=== PATIENT | female | born 1955 | race Caucasian/White ===

== ENCOUNTER → 2019-03-27 | Outpatient (CLI) | payer BC | END | disposition home or self-care (01) | LOC: LAB EV 15:52 → LAB SHORT 15:52 | DX: N39.0 Urinary tract infection, site not specified (principal) | CPT/HCPCS: 87077; 87086; 87186 ==

== ENCOUNTER → 2019-10-29 | Outpatient (CLI) | payer MEDICARE | END | disposition home or self-care (01) | LOC: LAB 13:02 → LAB SHORT 13:02 | DX: N39.0 Urinary tract infection, site not specified (principal) | CPT/HCPCS: 87077; 87086; 87186 ==

== ENCOUNTER → 2020-01-07 | Outpatient (CLI) | payer MEDICARE ==
[2020-01-07 19:00] LABS: BASOPHILS ABSOLUTE AUTO 0.05 K/mm3 (0.00-0.23); BASOPHILS PERCENT AUTO 1 % (0-2); EOSINOPHILS ABSOLUTE AUTO 0.22 K/mm3 (0.00-0.68); EOSINOPHILS PERCENT AUTO 2 % (0-6); Hematocrit 36.2 % (33.0-51.0); Hemoglobin 11.5 g/dL (11.5-16.0); IMMATURE GRAN ABSOLUTE AUTO 0.02 K/mm3 (0.00-0.10); IMMATURE GRAN PERCENT AUTO 0 % (0-1); LYMPHOCYTES ABSOLUTE AUTO 1.79 K/mm3 (0.84-5.20); LYMPHOCYTES PERCENT AUTO 20 % (21-46); MONOCYTES ABSOLUTE AUTO 0.53 K/mm3 (0.16-1.47); MONOCYTES PERCENT AUTO 6 % (4-13); Mean Corpuscular HGB 30.5 pg (26.0-34.0); Mean Corpuscular HGB Conc 31.8 g/dL (31.5-36.5); Mean Corpuscular Volume 96 fL (80-100); NEUTROPHILS ABSOLUTE AUTO 6.58 K/mm3 (1.96-9.15); NEUTROPHILS PERCENT AUTO 72 % (41-73); Platelet Count 275 K/mm3 (150-400); RDW Coefficient Variation 12.3 % (11.7-14.2); RDW Standard Deviation 42.3 fL (35.1-46.3); Red Blood Cell Count 3.77 M/mm3 (3.80-5.20); White Blood Cell Count 9.19 K/mm3 (4.00-11.30)
[2020-01-07 19:23] LABS: Albumin, Blood 3.3 g/dL (3.4-5.0); Albumin/Globulin Ratio 0.8 (0.8-1.8); Bilirubin, Total 0.4 mg/dL (0.1-1.0); Bun/Creatinine Ratio 24.9 (12.0-20.0); Calcium, Blood 9.4 mg/dL (8.5-10.1); Creatinine, Blood 2.45 mg/dL (0.40-1.00); Globulin, Blood 4.2 g/dL (2.2-4.0); Total Protein, Blood 7.5 g/dL (6.4-8.2); Uric Acid, Blood 12.1 mg/dL (2.6-6.0)
== END | disposition home or self-care (01) ==
LOC: LAB 15:06 → LAB SHORT 15:06
PROVIDERS: Family Medicine
DX: M79.672 Pain in left foot (principal); E11.9 Type 2 diabetes mellitus without complications
CPT/HCPCS: 36415; 80053; 83036; 84550; 85025; 85651

== ENCOUNTER → 2020-08-05 | Outpatient (CLI) | payer MEDICARE ==
[2020-08-05 12:36] LABS: Protein, Urine Quantitative 10.1 mg/dL (0.0-11.9)
[2020-08-11 13:08] LABS: M-SPIKE, % Not Observed % (Not Observed); PROTEIN,TOTAL,URINE 5.1 mg/dL (Not Estab.)
== END | disposition home or self-care (01) ==
LOC: LAB 10:47 → LAB SHORT 10:47
PROVIDERS: Internal Medicine
DX: N18.32 Chronic kidney disease, stage 3b (principal)
CPT/HCPCS: 81050; 84156; 84166

== ENCOUNTER → 2020-10-18 | Outpatient (CLI) | payer MEDICARE | END | disposition home or self-care (01) | LOC: LAB SHORT 10:44 → LAB EV 10:44 | DX: R30.9 Painful micturition, unspecified (principal) | CPT/HCPCS: 87077; 87086; 87186 ==

== ENCOUNTER → 2022-05-08 | Outpatient (CLI) | payer MEDICARE | END | disposition home or self-care (01) | LOC: LAB SHORT 11:34 → LAB 11:34 | DX: N39.0 Urinary tract infection, site not specified (principal) | CPT/HCPCS: 87077; 87086; 87186 ==

== ENCOUNTER → 2022-05-20 | Outpatient (CLI) | payer MEDICARE | END | disposition home or self-care (01) | LOC: LAB SHORT 12:50 → LAB 12:50 | DX: N39.0 Urinary tract infection, site not specified (principal) | CPT/HCPCS: 87077; 87086; 87186 ==

== ENCOUNTER → 2022-10-06 | Outpatient (CLI) | payer MEDICARE ==
[~2022-10-06] MED LIST: ACET500 PO; ALLO100 PO; ATEN50 PO; CALC.25 PO; FERSU300 PO; FURO40 PO; GLIM4 PO; LOSA50 PO; PIOG30 PO; Vitamin D1000 UNI1 PO; ZOCOR20 MG PO
[2022-10-06 19:35] LABS: BASOPHILS ABSOLUTE AUTO 0.05 K/mm3 (0.00-0.23); BASOPHILS PERCENT AUTO 1 % (0-2); EOSINOPHILS ABSOLUTE AUTO 0.15 K/mm3 (0.00-0.68); EOSINOPHILS PERCENT AUTO 2 % (0-6); Hematocrit 34.9 % (33.0-51.0); Hemoglobin 10.8 g/dL (11.5-16.0); IMMATURE GRAN ABSOLUTE AUTO 0.08 K/mm3 (0.00-0.10); IMMATURE GRAN PERCENT AUTO 1 % (0-1); LYMPHOCYTES ABSOLUTE AUTO 1.45 K/mm3 (0.84-5.20); LYMPHOCYTES PERCENT AUTO 22 % (21-46); MONOCYTES ABSOLUTE AUTO 0.41 K/mm3 (0.16-1.47); MONOCYTES PERCENT AUTO 6 % (4-13); Mean Corpuscular HGB 32.3 pg (26.0-34.0); Mean Corpuscular HGB Conc 30.9 g/dL (31.5-36.5); Mean Corpuscular Volume 105 fL (80-100); Mean Platelet Volume 10.3 fL (9.1-12.4); NEUTROPHILS ABSOLUTE AUTO 4.57 K/mm3 (1.96-9.15); NEUTROPHILS PERCENT AUTO 68 % (41-73); Platelet Count 408 K/mm3 (150-400); RDW Coefficient Variation 13.2 % (11.7-14.2); RDW Standard Deviation 49.1 fL (35.1-46.3); Red Blood Cell Count 3.34 M/mm3 (3.80-5.20); White Blood Cell Count 6.71 K/mm3 (4.00-11.30)
[2022-10-06 21:09] LABS: Alanine Aminotransfer (ALT/SGP 22 U/L (12-78); Albumin, Blood 3.2 g/dL (3.4-5.0); Albumin/Globulin Ratio 0.8 (0.8-1.8); Alk Phos 75 U/L (50-136); Anion Gap 8 mmol/L (6-16); Aspartate Aminotrans (AST/SGOT 32 U/L (12-37); Bilirubin, Total 0.6 mg/dL (0.1-1.0); Blood Urea Nitrogen 46 mg/dL (8-24); Bun/Creatinine Ratio 23.7 (12.0-20.0); CHOL/HDL RATIO 3.7; CO2, Blood 18 mmol/L (21-32); Calcium, Blood 9.4 mg/dL (8.5-10.1); Chloride, Blood 114 mmol/L (98-108); Cholesterol 173 mg/dL (50-200); Creatinine, Blood 1.94 mg/dL (0.40-1.00); Globulin, Blood 4.1 g/dL (2.2-4.0); Glomerular Filtration Rate 28 (60-); Glucose, Blood 189 mg/dL (70-99); HDL Cholesterol 47 mg/dL (>39); LDL/HDL RATIO 1.8; Low Density Lipoprotein Chol 85 mg/dL (0-110); Potassium, Blood 4.8 mmol/L (3.5-5.5); Sodium, Blood 140 mmol/L (136-145); Thyroxine (T4) 12.6 ug/dL (4.8-13.9); Total Protein, Blood 7.3 g/dL (6.4-8.2); Triglycerides 204 mg/dL (30-160); Very Low Density Lipoprot Chol 40 mg/dL (6-32)
== END | disposition home or self-care (01) ==
LOC: LAB 12:10 → LAB SHORT 12:10
PROVIDERS: Family Medicine
DX: I10 Essential (primary) hypertension (principal); E11.9 Type 2 diabetes mellitus without complications; E03.9 Hypothyroidism, unspecified; E78.2 Mixed hyperlipidemia
CPT/HCPCS: 80053; 80061; 83036; 84436; 84443; 85025

== ENCOUNTER → 2023-02-01 | Outpatient (CLI) | payer MEDICARE ==
[~2023-02-01] MED LIST changes: +CLOP75 PO; +PANT40 PO
== END | disposition home or self-care (01) ==
LOC: LAB SHORT 09:25 → LAB 09:25
DX: N39.0 Urinary tract infection, site not specified (principal)
CPT/HCPCS: 87077; 87086; 87186

== ENCOUNTER 2023-03-03 20:05 | Inpatient (IN) | payer MEDICARE ==
[~2023-03-03] VITALS: Ht 152.4 cm; Wt 157.8 kg
[2023-03-03 20:42] LABS: BASOPHILS ABSOLUTE AUTO 0.03 K/mm3 (0.00-0.23); BASOPHILS PERCENT AUTO 0 % (0-2); EOSINOPHILS PERCENT AUTO 1 % (0-6); Hematocrit 28.7 % (33.0-51.0); Hemoglobin 8.8 g/dL (11.5-16.0); IMMATURE GRAN ABSOLUTE AUTO 0.06 K/mm3 (0.00-0.10); IMMATURE GRAN PERCENT AUTO 1 % (0-1); LYMPHOCYTES PERCENT AUTO 12 % (21-46); MONOCYTES ABSOLUTE AUTO 0.47 K/mm3 (0.16-1.47); MONOCYTES PERCENT AUTO 6 % (4-13); Mean Corpuscular HGB 31.8 pg (26.0-34.0); Mean Corpuscular HGB Conc 30.7 g/dL (31.5-36.5); Mean Corpuscular Volume 104 fL (80-100); Mean Platelet Volume 10.9 fL (9.1-12.4); NEUTROPHILS ABSOLUTE AUTO 6.06 K/mm3 (1.96-9.15); NEUTROPHILS PERCENT AUTO 80 % (41-73); Platelet Count 173 K/mm3 (150-400); RDW Coefficient Variation 14.6 % (11.7-14.2); RDW Standard Deviation 55.2 fL (35.1-46.3); Red Blood Cell Count 2.77 M/mm3 (3.80-5.20); White Blood Cell Count 7.62 K/mm3 (4.00-11.30)
[2023-03-03 21:04] LABS: Albumin, Blood 3.6 g/dL (3.4-5.0); Bilirubin, Total 0.4 mg/dL (0.1-1.0); Bun/Creatinine Ratio 20.7 (12.0-20.0); Calcium, Blood 10.3 mg/dL (8.5-10.1); Creatinine, Blood 3.63 mg/dL (0.40-1.00); Globulin, Blood 3.5 g/dL (2.2-4.0); Potassium, Blood 3.6 mmol/L (3.5-5.5); Total Protein, Blood 7.1 g/dL (6.4-8.2)
[2023-03-03 21:40] LABS: Source, Urine Clean Catch
[2023-03-03 21:56] LABS: Bilirubin, Urine Neg (Neg); Blood, Urine 2+ (Neg); Glucose Qualitative, Urine Neg (Neg); Ketones, Urine 1+ (Neg); Leukocyte Esterase, Urine Neg (Neg); Nitrite, Urine Neg (Neg); Protein, Urine 2+ (Neg); Specific Gravity, Urine 1.015 (1.003-1.022); Urobilinogen, Urine NORM (Normal)
[2023-03-03 22:28] LABS: Acetaminophen, Random <2.0 ug/mL (10.0-30.0); Magnesium, Blood 2.7 mg/dL (1.6-2.4); Salicylate <1.7 mg/dL (2.8-20.0); Uric Acid, Blood 5.4 mg/dL (2.6-6.0)
[2023-03-03 22:31] LABS: Phosphorus, Blood 5.8 mg/dL (2.5-4.9)
[2023-03-03 23:01] LABS: Appearance, Urine Hazy (Clear); Color, Urine Yellow (P-Yellow)
[2023-03-03 23:02] LABS: Amorphous Light (0-Heavy); Bacteria Few /hpf; Red Blood Cells, Urine 0-2 /hpf (0-2); Squamous Epithelial Cells Few /hpf (Few); White Blood Cells, Urine 0-2 /hpf (0-5)
[2023-03-03 23:41] LABS: pH Blood Venous 7.31 (7.34-7.37)
[2023-03-03 23:42] LABS: Base Excess Venous -4.9 mmol/L; Bicarbonate Venous 20.6 mmol/L (24.0-30.0)
[2023-03-04] VITALS (9 sets, daily range): BP systolic 90–175; BP diastolic 40–97
--- NOTE | 2023-03-04 04:50 | NUR ---
SHIFT SUMMARY THE PT IS A NEW ADMIT THIS SHIFT. SHE WAS ADMITTED INTO PCU 14 BUT AFTER ASSESSMENTS WE MOVED HER TO PCU 20 SO WE CAN FIT A BARIATRIC BED AND IT IS A LIFT ROOM . THE PT IS A&OX3-4 BUT SHE IS LETHARGIC AND DOES NOT STAY AWAKE FOR FULL CONVERSATIONS. SHE IS MUMBLING AND HAVING DIFFICULTIES REMEMBERING THINGS, BUT HER HAS BEEN AT BEDSIDE AND HAS BEEN ABLE TO HELP ANSWER QUESTIONS. A NEPHROLOGY CONSULT WAS PLACED DUE TO DECREASED KIDNEY FUNCTION. WHEN THE RESIDENT CAME TO SEE HER, HE WAS TALKING ABOUT HER POSSIBLY NEEDING DIALYSIS. SHE HAS A DIALYSIS PORT IN HER LEFT ARM THAT HAS NOT BEEN USED YET. IT WAS PLACED A FEW MONTHS AGO INCASE SHE NEEDED TO HAVE DILAYSIS. THE PT HAS BEEN HAVING CHILLS BUT SHE IS NOT RUNNING A FEVER AT THIS TIME. HER BLE ARE RED, SWOLLEN, AND TENDER. SHE IS NPO AT THIS TIME, AND HAS SPEECH THERAPY ORDERED BECAUSE SHE STATES SHE HAS BEEN HAVING TROUBLE SWALLOWING AT HOME. DUE TO HER MENTATION AND WEAKNESS I HAVE HER BEDREST UNTIL PT/OT EVALUATES. A CARE MANAGMENT CONSULT WAS PLACED BECAUSE SHE IS CURRENTLY LIVING IN A [place] WITH HER AND HAS ISSUES GETTINGUP THE STAIRS, SHE CAN NOT SHOWER, AND SHE HAS BEEN ALMOST "CONFINED" TO A CAMP CHAIR. ON TELE SHE HAS BEEN SB/SR W/ A FHB, AND SHE IS ON 2L NC WITH SP02 >9%. PT GETS SOB WITH ANY EXCERTION. DURING MY ADMISSION ASSESSMENT SHE WAS FOUND TO HAVE SOME VAGINAL BLEEDING. THE PT WAS UNAWARE AND STATE THIS HAS NOT HAPPENED BEFORE. IT APPEARS THAT THE BLEEDING IS COMING FROM THE VAGINAL CANAL. SHE IS A 3 PERSON ROLL WHEN MOVING IN BED. NO ACUTE EVENTS OVER NIGHT. SEE NOTES FOR ANY UPDATES. FIRE IGNITION RISK WAS ASSESSED ON THE PT AND HER . NO RISK ASSESSED.
[2023-03-04 05:29] LABS: BASOPHILS ABSOLUTE AUTO 0.04 K/mm3 (0.00-0.23); BASOPHILS PERCENT AUTO 1 % (0-2); EOSINOPHILS ABSOLUTE AUTO 0.16 K/mm3 (0.00-0.68); EOSINOPHILS PERCENT AUTO 2 % (0-6); Hematocrit 25.8 % (33.0-51.0); Hemoglobin 7.9 g/dL (11.5-16.0); IMMATURE GRAN ABSOLUTE AUTO 0.08 K/mm3 (0.00-0.10); IMMATURE GRAN PERCENT AUTO 1 % (0-1); LYMPHOCYTES ABSOLUTE AUTO 1.05 K/mm3 (0.84-5.20); LYMPHOCYTES PERCENT AUTO 13 % (21-46); MONOCYTES ABSOLUTE AUTO 0.75 K/mm3 (0.16-1.47); MONOCYTES PERCENT AUTO 9 % (4-13); Mean Corpuscular HGB 31.7 pg (26.0-34.0); Mean Corpuscular HGB Conc 30.6 g/dL (31.5-36.5); Mean Corpuscular Volume 104 fL (80-100); NEUTROPHILS PERCENT AUTO 74 % (41-73); NRBC ABSOLUTE 0.02 K/mm3 (0.00-0.02); NRBC Auto 0.3 /100 WBC (0.0-0.2); Platelet Count 173 K/mm3 (150-400); RDW Coefficient Variation 14.6 % (11.7-14.2); RDW Standard Deviation 55.1 fL (35.1-46.3); Red Blood Cell Count 2.49 M/mm3 (3.80-5.20); White Blood Cell Count 7.98 K/mm3 (4.00-11.30)
[2023-03-04 06:05] LABS: Albumin, Blood 3.5 g/dL (3.4-5.0); Albumin/Globulin Ratio 1.1 (0.8-1.8); Bilirubin, Total 0.4 mg/dL (0.1-1.0); Bun/Creatinine Ratio 20.1 (12.0-20.0); Calcium, Blood 9.9 mg/dL (8.5-10.1); Creatinine, Blood 3.54 mg/dL (0.40-1.00); Globulin, Blood 3.3 g/dL (2.2-4.0); Potassium, Blood 3.6 mmol/L (3.5-5.5); Total Protein, Blood 6.8 g/dL (6.4-8.2)
[2023-03-04 12:11] LABS: Hematocrit 27.2 % (33.0-51.0); Hemoglobin 8.5 g/dL (11.5-16.0)
--- NOTE | 2023-03-04 16:55 | NUR ---
END OF SHIFT NOTE: NO ACUTE EVENTS THIS SHIFT. PT A&OX3-4, LETHARGIC AT TIMES AND ONLY RESPONSIVE TO PHYSICAL STIMULI. ONCE AWAKE, PT IS ABLE TO HOLD CONVERSATION AND EXPRESS NEEDS TO STAFF. HR SR/SB 50-60'S. BP STABLE. PT DENIES CHEST PAIN/PRESSURE. SPO2 >95% ON 2L VIA NC; HOB ELEVATED FOR REPORTED SOB. PT WITH HEAVY SNORE WHILE SLEEPING, ORDERS RECEIVED FOR SLEEP OXIMETRY. LEFT ARM DIALYSIS CATHETER REMAINS IN PLACE BUT NOT YET UTILIZED. PT TOLERATING PUREE DIET WELL, NO REPORTS OF NAUSEA/VOMITING. UP TO BSC WITH 1P SBA WITH URINE PRODUCTION. NO BM THIS SHIFT, ENTERIC PRECAUTIONS IN PLACE FOR R/O CDIFF. NO VAGINAL BLEEDING NOTED FOLLOWING AM REPORT RECEIVED. PT REPOSITIONED FREQUENTLY T/O SHIFT, UP TO CHAIR FOR SEVERAL HOURS AT LUNCH. CALL LIGHT WITHIN REACH, NO FURTHER NEEDS AT THIS TIME. WILL REPORT TO TITA VALENCIA RN.
--- NOTE | 2023-03-04 17:22 | NUR ---
"Spiritual Care Attempted | Pt request. Pt. is sominlant and does not respond. Prayed for Pt. Will remain available to Pt."
[2023-03-04 17:32] LABS: Hematocrit 26.5 % (33.0-51.0); Hemoglobin 7.9 g/dL (11.5-16.0)
--- NOTE | 2023-03-05 03:14 | NUR ---
EOS: PATIENT IS STILL UNDERGOING PULSE OXIMETRY TO WHICH SHE HAS BARELY SLEPT, MORE ALERT AND ORINETED FOR LONGER TIMES THAN FOR DAY SHIFT. VSS, BP MILDLY HYPERTENSIVE 150'S SYS. HAS BEEN ON RA VERSUS ASSUMPTION NEEDING 2L. PAITENT 1P SBA FWW TO [facility], IMPROVED EXERTIONAL ABILITY, STILL MILDLY FOGGY, DID NOT OBTAIN UA DUE TO NO ORDER, NO BM, BLOOD GLUCOSE IN THE 70'S STABLE PREFORMED PRN CHECK AT ~0000 DID NOT DROP. PATIENT STILL ENDORSING BLE PAIN LEVEL OF THE CALF DOWN, MILD +1 AND GENERALIZED PITTING EDEMA. UNABLE TO TOLERATE SCD'S. SIGNIFICANT EVENTS: PATIENT NOW IN AFIB. PROVIDER AWARE, RATE CONTROLLED, ASYMPTOMATIC, OCCURED AT 2342, RECIEVING SQ HEPARIN Q8. PROVIDER INSTRUCTIONS TO CONTINUE TO MONITOR. ECHO. US DUPLEX BLE BOTH PERFORMED SINCE ADMISSION.
[2023-03-05 04:45] VITALS: BP 156/59
[2023-03-05 06:51] LABS: BASOPHILS ABSOLUTE AUTO 0.04 K/mm3 (0.00-0.23); BASOPHILS PERCENT AUTO 1 % (0-2); EOSINOPHILS ABSOLUTE AUTO 0.19 K/mm3 (0.00-0.68); EOSINOPHILS PERCENT AUTO 3 % (0-6); Hematocrit 24.8 % (33.0-51.0); Hemoglobin 7.7 g/dL (11.5-16.0); IMMATURE GRAN ABSOLUTE AUTO 0.06 K/mm3 (0.00-0.10); IMMATURE GRAN PERCENT AUTO 1 % (0-1); LYMPHOCYTES ABSOLUTE AUTO 0.88 K/mm3 (0.84-5.20); LYMPHOCYTES PERCENT AUTO 12 % (21-46); MONOCYTES ABSOLUTE AUTO 0.65 K/mm3 (0.16-1.47); MONOCYTES PERCENT AUTO 9 % (4-13); Mean Corpuscular HGB 31.8 pg (26.0-34.0); Mean Corpuscular Volume 103 fL (80-100); Mean Platelet Volume 10.6 fL (9.1-12.4); NEUTROPHILS ABSOLUTE AUTO 5.79 K/mm3 (1.96-9.15); NEUTROPHILS PERCENT AUTO 76 % (41-73); NRBC ABSOLUTE 0.02 K/mm3 (0.00-0.02); NRBC Auto 0.3 /100 WBC (0.0-0.2); Platelet Count 147 K/mm3 (150-400); RDW Coefficient Variation 14.6 % (11.7-14.2); RDW Standard Deviation 54.4 fL (35.1-46.3); Red Blood Cell Count 2.42 M/mm3 (3.80-5.20); White Blood Cell Count 7.61 K/mm3 (4.00-11.30)
[2023-03-05 07:10] LABS: Percent Saturation 12.7 % (15.0-50.0)
[2023-03-05 07:11] LABS: Albumin, Blood 3.2 g/dL (3.4-5.0); Albumin/Globulin Ratio 0.9 (0.8-1.8); Bilirubin, Total 0.5 mg/dL (0.1-1.0); Bun/Creatinine Ratio 21.8 (12.0-20.0); Calcium, Blood 9.8 mg/dL (8.5-10.1); Creatinine, Blood 3.3 mg/dL (0.40-1.00); Globulin, Blood 3.4 g/dL (2.2-4.0); Phosphorus, Blood 4.9 mg/dL (2.5-4.9); Potassium, Blood 3.6 mmol/L (3.5-5.5); Total Protein, Blood 6.6 g/dL (6.4-8.2)
[2023-03-05 07:28] VITALS: BP 151/63
--- NOTE | 2023-03-05 10:00 | NUR ---
AFIB TO NSR PT CONVERT FROM AFIB TO SR @ 3004.
[2023-03-05 11:09] VITALS: BP 145/51
--- NOTE | 2023-03-05 14:20 | NUR ---
TRANSFER TO MEDICAL PT MEDICAL W/ TELEMETRY STATUS. A&O X4. VSS. SPO2 > 92% ON RA. MONITOR SHOWING SB-SR, HR 50s-60s. PT 1-2 PERSON ASSIST FOR OOB TRANSFER. D5 1/2 NS GTT INFUSING PER ORDERS, TO BE SALINE LOCKED WHEN COMPLETE. REPORT GIVEN TO ACCEPTING MEDICAL FLOOR RN. PT TAKEN UP TO RM 340 @ APPROX 1400.
[2023-03-05 15:34] VITALS: BP 119/51
--- NOTE | 2023-03-05 18:19 | NUR ---
SHIFT SUMMARY PATIENT TRANSFERED FROM PCU THIS AFTERNOON. PATIENT WEAK AND TIRED. PATIENT EASILY ANXIOUS. PATIENT HAD FISTULA PLACED IN L ARM PRIOR TO THIS ADMISSION. DIFFICULT TO PALPATE FISTULA BECAUSE OF EDEMA IN ARM. PATIENT IN BARIATRIC BED. UNABLE TO COLLECT STOOL SAMPLE FOR C-DIFF. PATIENT NOT HAVING ANY DIARRHEA OR STOOLS AT THIS TIME.
[2023-03-05 20:37] VITALS: BP 146/48
--- NOTE | 2023-03-06 03:08 | NUR ---
COOKER SULFITE SUMMARY VSS. ALERT TO QUESTIONS ASKED. IVF OF NS INFUSED. ASSISTED TO BEDSIDE COMMODE WITH MUCH ASSIST - 2 PERSON DUE TO SEVERE OBESITY AND DIFFICULTY TO MOVE. MED TELE SR AT 79. ADA DIET, ACCU CHECK WAS 117 AT HS. REPOSITIONED INTERMITTENTLY WITH PT ASSISTANCE. AT BEDSIDE FOR SUPPORT AND ASSISTS WITH PT CARE. HAS BEEN RESTING QUIETLY WITH FEW INTERRUPTIONS. CALL LIGHT IN REACH. WILL CONINUE TO MONITOR.
[2023-03-06 04:28] VITALS: BP 155/50
[2023-03-06 05:16] LABS: BASOPHILS ABSOLUTE AUTO 0.02 K/mm3 (0.00-0.23); BASOPHILS PERCENT AUTO 0 % (0-2); EOSINOPHILS ABSOLUTE AUTO 0.18 K/mm3 (0.00-0.68); EOSINOPHILS PERCENT AUTO 3 % (0-6); IMMATURE GRAN ABSOLUTE AUTO 0.09 K/mm3 (0.00-0.10); IMMATURE GRAN PERCENT AUTO 1 % (0-1); LYMPHOCYTES ABSOLUTE AUTO 1.06 K/mm3 (0.84-5.20); LYMPHOCYTES PERCENT AUTO 15 % (21-46); MONOCYTES ABSOLUTE AUTO 0.82 K/mm3 (0.16-1.47); MONOCYTES PERCENT AUTO 11 % (4-13); Mean Corpuscular HGB 31.1 pg (26.0-34.0); Mean Corpuscular HGB Conc 30.4 g/dL (31.5-36.5); Mean Corpuscular Volume 102 fL (80-100); Mean Platelet Volume 10.7 fL (9.1-12.4); NEUTROPHILS PERCENT AUTO 70 % (41-73); NRBC ABSOLUTE 0.02 K/mm3 (0.00-0.02); NRBC Auto 0.3 /100 WBC (0.0-0.2); Platelet Count 141 K/mm3 (150-400); RDW Coefficient Variation 14.6 % (11.7-14.2); RDW Standard Deviation 54.6 fL (35.1-46.3); Red Blood Cell Count 2.25 M/mm3 (3.80-5.20); White Blood Cell Count 7.17 K/mm3 (4.00-11.30)
[2023-03-06 05:46] LABS: Albumin, Blood 2.8 g/dL (3.4-5.0); Anion Gap 7 mmol/L (6-16); Blood Urea Nitrogen 62 mg/dL (8-24); Bun/Creatinine Ratio 22.1 (12.0-20.0); CO2, Blood 21 mmol/L (21-32); Chloride, Blood 117 mmol/L (98-108); Creatinine, Blood 2.81 mg/dL (0.40-1.00); Glomerular Filtration Rate 18 (60-); Glucose, Blood 85 mg/dL (70-99); Phosphorus, Blood 3.5 mg/dL (2.5-4.9); Potassium, Blood 3.1 mmol/L (3.5-5.5); Sodium, Blood 145 mmol/L (136-145)
[2023-03-06 16:40] VITALS: BP 151/47
[2023-03-06 19:36] VITALS: BP 148/54
--- NOTE | 2023-03-06 19:50 | NUR ---
SHIFT SUMMARY PATIENT OOB X2 TODAY WITH 2 PERSON ASSIST. PATIENT ABLE TO AMBULATE WITH STAND BY ASSIST A FEW STEPS. STEP STOOLS USED TO HELP PATIENT GET INTO BED. PATIENT HAD EPISODES OF LOW SUGARS THROUGHOUT THE DAY. PROVIDERS AWARE. PATIENT GIVEN MULTIPLE JUICES AND SUGARY ITEMS TO BRING BLOOD SUGARS UP. PATIENT NOT GETTING ANY ORAL AGENTS OR INSULIN. DIURETICS RESTARTED TODAY AND PATIENT MEDICATED FOR GOUT.
[2023-03-07 02:16] VITALS: BP 177/59
--- NOTE | 2023-03-07 04:47 | NUR ---
SHIFT SUMMARY NOC PT A/O X 4. PLEASANT AND COOPERATIVE WITH CARE. PT HAD SPOT CHECK CBG 46 AND 8 OZ OF APPLE JUICE GIVEN AND HOSPITALIST NOTIFIED. ORDER FOR 1/2 AMP OF D50 GIVEN ALONG WITH 30 X 2 CHECKS. PT CBG 75/76 AFTER BOTH HOSPITALIST AWARE. SPOT CHECKS WILL CONTINUE TO MONITOR FOR S/S OF HYPOGLYCEMIA WELL CBG CHECKS LAST CBG 82. PT HGB WAS 7.0, K 3.1 REPLACEMENTS GIVEN AND AWAITING AM LABS FOR REEVALUATION. PT NOW HAS PUREWICK IN PLACE DUE TO DIFFICULTY IN AMBULATING TO BSC. PT ON TELE RUNNING SR IN 70'S. PT ON CONTACT ISOLATION UNTIL GI PANEL CAN BE COLLECTED.PT IS CURRENTLY RESTING WITH BED IN LOWEST POSITION, AND CALL LIGHT WITHIN REACH.
[2023-03-07 05:26] LABS: BASOPHILS ABSOLUTE AUTO 0.02 K/mm3 (0.00-0.23); BASOPHILS PERCENT AUTO 0 % (0-2); EOSINOPHILS ABSOLUTE AUTO 0.24 K/mm3 (0.00-0.68); EOSINOPHILS PERCENT AUTO 4 % (0-6); Hematocrit 24.3 % (33.0-51.0); Hemoglobin 7.4 g/dL (11.5-16.0); IMMATURE GRAN PERCENT AUTO 2 % (0-1); LYMPHOCYTES ABSOLUTE AUTO 1.03 K/mm3 (0.84-5.20); LYMPHOCYTES PERCENT AUTO 15 % (21-46); MONOCYTES ABSOLUTE AUTO 0.72 K/mm3 (0.16-1.47); MONOCYTES PERCENT AUTO 11 % (4-13); Mean Corpuscular HGB Conc 30.5 g/dL (31.5-36.5); Mean Corpuscular Volume 102 fL (80-100); Mean Platelet Volume 10.7 fL (9.1-12.4); NEUTROPHILS ABSOLUTE AUTO 4.62 K/mm3 (1.96-9.15); NEUTROPHILS PERCENT AUTO 69 % (41-73); Platelet Count 151 K/mm3 (150-400); RDW Coefficient Variation 14.6 % (11.7-14.2); Red Blood Cell Count 2.39 M/mm3 (3.80-5.20); White Blood Cell Count 6.73 K/mm3 (4.00-11.30)
[2023-03-07 05:54] LABS: Albumin, Blood 2.8 g/dL (3.4-5.0); Anion Gap 6 mmol/L (6-16); Blood Urea Nitrogen 62 mg/dL (8-24); Bun/Creatinine Ratio 22.9 (12.0-20.0); CO2, Blood 24 mmol/L (21-32); Calcium, Blood 9.7 mg/dL (8.5-10.1); Chloride, Blood 113 mmol/L (98-108); Creatinine, Blood 2.71 mg/dL (0.40-1.00); Glomerular Filtration Rate 18 (60-); Glucose, Blood 95 mg/dL (70-99); Phosphorus, Blood 3.3 mg/dL (2.5-4.9); Potassium, Blood 3.8 mmol/L (3.5-5.5); Sodium, Blood 143 mmol/L (136-145)
[2023-03-07 07:32] VITALS: BP 148/53
[2023-03-07 15:57] VITALS: BP 146/56
--- NOTE | 2023-03-07 16:40 | NUR ---
SHIFT SUMMARY: PT A&O X4. PT PLEASANT AND COOPERATIVE WITH CARE. RECEIVED REPORT THAT PT WAS A 2P TO LIFT PT. PT EASY 1P ASSIST TO RECLINER. PUREWICK IN PLACE BUT NOT WORKING/LEAKING. PT STATES SHE MOSTLY IS ABLE TO TELL WHEN SHE NEEDS TO USE RESTROOM. PT ABLE TO WORK WITH PT/OT TODAY. IV ACCIDENTALLY PULLED OUT WHEN WORKING WITH THERAPY. C/O 12/06 PAIN IN BILAT LEGS. MEDICATED PER EMAR. PT STATED SHE STILL FEELS TO WEAK TO GO HOME. PLAN TO D/C TOMORROW WITH HOME HEALTH. CBG 70 THIS AM. JUICE PROVIDED WITH LITTLE IMPROVEMENT. INSULIN BEGAN TO INCREASE WITH LUNCH AND DINNER CBG. INSULIN PEN D/C. TELE IN PLACE. NO BM THIS SHIFT SO UNABLE TO GET GI PANEL. CALL LIGHT IN REACH. BED IN LOWEST POSITION. WILL CONTINUE TO MONITOR.
[2023-03-07 20:01] VITALS: BP 189/70
[2023-03-07 22:44] LABS: Adenovirus F 40/41 Not Detected (NOT DETECT); Astrovirus Not Detected (NOT DETECT); Campylobacter Sp Not Detected (NOT DETECT); Cryptosporidium Not Detected (NOT DETECT); Cyclospora Cayetanensis Not Detected (NOT DETECT); E. Coli O157 Not Detected (NOT DETECT); Entamoeba Histolytica Not Detected (NOT DETECT); Enteroaggregative E. coli-EAEC Not Detected (NOT DETECT); Enteropathogenic E. coli-EPEC Not Detected (NOT DETECT); Enterotoxigenic E. coli-ETEC Not Detected (NOT DETECT); Giardia Lamblia Not Detected (NOT DETECT); Norovirus GI/GII Not Detected (NOT DETECT); Plesiomonas Shigelloides Not Detected (NOT DETECT); Rotavirus A Not Detected (NOT DETECT); Salmonella Sp Not Detected (NOT DETECT); Sapovirus Not Detected (NOT DETECT); Shiga Toxin-prod E. coli-STEC Not Detected (NOT DETECT); Shigella/Enteroin E. coli-EIEC Not Detected (NOT DETECT); Vibrio Cholerae Not Detected (NOT DETECT); Vibrio Sp Not Detected (NOT DETECT); Yersinia Enterocolitica Not Detected (NOT DETECT)
[2023-03-08 05:31] VITALS: BP 160/56
[2023-03-08 05:49] LABS: Base Excess Venous 0.7 mmol/L; Bicarbonate Venous 25.1 mmol/L (24.0-30.0); PCO2 Venous 35.8 mmHg (38-42); pH Blood Venous 7.45 (7.34-7.37)
[2023-03-08 06:07] LABS: Albumin, Blood 2.8 g/dL (3.4-5.0); Anion Gap 4 mmol/L (6-16); Blood Urea Nitrogen 50 mg/dL (8-24); Bun/Creatinine Ratio 18.4 (12.0-20.0); CO2, Blood 24 mmol/L (21-32); Calcium, Blood 9.9 mg/dL (8.5-10.1); Chloride, Blood 113 mmol/L (98-108); Creatinine, Blood 2.72 mg/dL (0.40-1.00); Free Thyroxine 1.28 ng/dL (0.70-1.60); Glomerular Filtration Rate 18 (60-); Glucose, Blood 93 mg/dL (70-99); Phosphorus, Blood 2.9 mg/dL (2.5-4.9); Potassium, Blood 4.2 mmol/L (3.5-5.5); Sodium, Blood 141 mmol/L (136-145)
[2023-03-08 07:25] VITALS: BP 182/52
[2023-03-08 10:00] LABS: Stool Occult Bld Immuno 1 Positive (NEGATIVE)
== END 2023-03-08 15:40 | disposition home or self-care (01) | DRG 682 ==
LOC: ER 20:05 → PCU 20:06 → MEDS 03-04 15:04 → PCU 03-04 15:04 → MEDS 03-05 13:57
PROVIDERS: Emergency Medicine; Hospitalist; Internal Medicine; Student in an Organized Health Care Education/Training Program; ADMIT Internal Medicine
DX: N17.9 Acute kidney failure, unspecified (principal); G92.8 Other toxic encephalopathy; N39.0 Urinary tract infection, site not specified; E87.29 Other acidosis; Z68.44 Body mass index [BMI] 60.0-69.9, adult; E66.01 Morbid (severe) obesity due to excess calories; N18.4 Chronic kidney disease, stage 4 (severe); D63.1 Anemia in chronic kidney disease; I12.9 Hypertensive chronic kidney disease with stage 1 through stage 4 chronic kidney disease, or unspecified chronic kidney disease; K21.9 Gastro-esophageal reflux disease without esophagitis; E11.22 Type 2 diabetes mellitus with diabetic chronic kidney disease; E86.0 Dehydration; E86.9 Volume depletion, unspecified; K52.9 Noninfective gastroenteritis and colitis, unspecified; M19.90 Unspecified osteoarthritis, unspecified site; E87.6 Hypokalemia; E78.5 Hyperlipidemia, unspecified; E83.39 Other disorders of phosphorus metabolism; M10.9 Gout, unspecified; Z79.02 Long term (current) use of antithrombotics/antiplatelets; Z79.899 Other long term (current) drug therapy
CPT/HCPCS: 36415; 71046; 80053; 80069; 81001; 82140; 82274; 82533; 82803; 82947; 83540; 83550; 83605; 83690; 83735; 83880; 84100; 84439; 84443; 84484; 84550; 85014; 85018; 85025; 85379; 86850; 86900; 86901; 87507; 92526; 92610; 93005; 93010; 93306; 93970; 94760; 94762; 96372; 96374; 97110-CQ; 97116; 97161; 97166; 97530; 97530-CQ; 97535; 99285-25; A9270; G0378; G0480; J1644; J2310; J2916; J7042; P9612; Q5106

== ENCOUNTER → 2025-01-16 | Outpatient (CLI) | payer MEDICARE | LOC: LAB 18:18 → LAB SHORT 18:18 | DX: N39.0 Urinary tract infection, site not specified (principal) | CPT/HCPCS: 87077; 87086; 87186 ==

== ENCOUNTER → 2025-04-08 | Outpatient (CLI) | payer MEDICARE | LOC: LAB SHORT 09:19 → LAB 09:19 | DX: N39.0 Urinary tract infection, site not specified (principal); R31.9 Hematuria, unspecified | CPT/HCPCS: 87086 ==